=== PATIENT | female | born 1995 | race Caucasian/White ===

== ENCOUNTER 2021-07-27 10:01 | Outpatient (REF) | payer OTHER, SELFPAY ==
[2021-07-27 11:22] LABS: MANUAL DIFF FLAG NO
[2021-07-27 11:34] LABS: Basophils Absolute Auto 0.1 X10*3/uL (0.0-0.2); Basophils Percent Auto 0.7 % (0-2); Eosinophils Absolute Auto 0.2 X10*3/uL (0.0-0.4); Eosinophils Percent Auto 1.7 % (0-4); Hematocrit 35.4 % (37.0-47.0); Hemoglobin 10.4 g/dl (12.0-16.0); Imm Gran Abs Auto 0.04 X10*3/uL (0.00-0.03); Imm Gran Pct Auto 0.3 % (0.0-0.4); Lymphocytes Absolute Auto 2.7 X10*3/uL (1.2-4.9); Lymphocytes Percent Auto 23.3 % (20-40); Mean Corpuscular HGB Conc 29.4 g/dl (31.0-35.0); Mean Corpuscular Hemoglobin 21.4 pg (27.0-33.0); Mean Platelet Volume 10.2 fL (9.4-12.3); Monocytes Absolute Auto 0.6 X10*3/uL (0.1-1.2); Monocytes Percent Auto 5.6 % (2-11); Neutrophils Absolute Auto 7.8 x10*3/uL (2.0-8.3); Neutrophils Percent Auto 68.4 % (45-73); Platelet Count 447 X10*3/uL (160-400); Red Blood Count 4.85 X10*6/uL (4.20-5.50); Red Cell Distribution Width 17.8 % (11.0-16.0); White Blood Count 11.4 X10*3/uL (4.8-10.8)
[2021-07-27 11:49] LABS: Anion Gap 13 (12-20); Blood Urea Nitrogen 10 mg/dL (9-16); Calcium 9.7 mg/dL (8.4-10.2); Carbon Dioxide 23 mmol/L (22-29); Chloride 105 mmol/L (96-108); Cholesterol 206 mg/dL; Estimated Glomerular Filt Rate > 60; Glucose Fasting 120 mg/dL (60-99); HDL Cholesterol 47 mg/dL; LDL Cholesterol Calculated 143 mg/dl; Potassium 3.9 mmol/L (3.3-5.1); Sodium 137 mmol/L (135-145); Triglycerides 81 mg/dL
[2021-07-27 12:04] LABS: TSH reflex Free T4 2.54 uIU/mL (0.32-4.0); Vitamin D 25-OH Total 18.5 ng/mL (>30)
== END 2021-07-27 10:02 | disposition home or self-care (01) ==
LOC: HO.HMGCLDS 10:01
PROVIDERS: Visit Provider Internal Medicine
DX: Z00.01 Encounter for general adult medical examination with abnormal findings (principal); F84.5 Asperger's syndrome; R53.83 Other fatigue
CPT/HCPCS: 36415; 80048; 80061; 82306; 84443; 85025

== ENCOUNTER 2021-10-05 12:28 | Outpatient (REF) | payer OTHER, SELFPAY | END 2021-10-05 12:29 | disposition home or self-care (01) | LOC: HO.HOSX 12:28 | PROVIDERS: Visit Provider Physician Assistant | DX: Z13.89 Encounter for screening for other disorder (principal) ==

== ENCOUNTER 2023-09-24 13:03 | Outpatient (AMB) | payer OTHER, SELFPAY ==
--- NOTE | 2023-09-24 13:20 | AM.OFFWIN_ITS ---
Intake Vital Signs 09/24/23 13:25 Height 5 ft 7 in Weight 238 lb 8 oz BMI 37.4 BP 118/74 Blood Pressure Location Lt brachial Position Sitting Respiration 16 Pulse 105 H Pulse Source Pulse Oximeter Temp 98.7 F Temp Source Oral Intake Visit Reasons: Right ankle pain and swelling Intake Note: Right ankle pain and swelling. Patient Tobacco Use Status: Never used Tobacco Accompanied by: Mother Is last menstrual period known: Yes (last week) Allergies penicillin G Allergy (Unknown, Verified 09/24/23 13:24) Rash Penicillins [PENICILLINS] Allergy (Unknown, Verified 09/24/23 13:24) RASH Medication List - Last Reconciled 09/24/23 by Yumiko Alex PA-C No Known Home Meds Do you need a note to return to daycare/school/sports/work: No HPI Right ankle pain and swelling HPI Details Patient is a 28-year-old female who presents today with complaints of right ankle pain that started a few days ago. She jumped into the pool in the shallow end and rolled her ankle. She states that she landed hard on her ankle and is worried that she could have broke it. She says that there was immediate pain and swelling. She has been using an Jovi bandage at home, OTC analgesics and still experiencing pain. She states that she is able to weightbear but it is painful. Her mother notes that she has been limping. She has never injured this ankle before. [facility] Medical History (Updated 09/24/23 @ 14:07 by Yumiko Alex PA-C) Elevated LDL cholesterol level Vitamin D deficiency Microcytic hypochromic anemia Elevated fasting glucose Chronic pain of left knee Asperger syndrome Generalized anxiety disorder Surgical History No pertinent past surgical history Family History Mother Generalized anxiety disorder Osteoarthritis Father PTSD (post-traumatic stress disorder) Generalized anxiety disorder Social History Housing: House Patient Tobacco Use Status: Never used Tobacco e-Cigarette/Vaping Use: Never Used service: No Current occupational status: unemployed Cognitive needs: No Hearing needs: No Vision needs: Yes Female Reproductive History Menstrual Age of Menarche: 11 Physical Exam Vital Signs: Last Vital Signs Temp 98.7 F 09/24/23 13:25 Pulse 105 H 09/24/23 13:25 Resp 16 09/24/23 13:25 BP 118/74 09/24/23 13:25 BMI result Body Mass Index 37.4 Const Orientation/consciousness: patient oriented x3 Resp Auscultation: clear to auscultation bilaterally Cardio Rate: regular rate Rhythm: regular rhythm Heart sounds: S1 normal heart sound present and S2 normal heart sound present Skin General skin exam: no rashes or lesions noted Neuro General: patient oriented x3 Extrem Other: There is mild soft tissue swelling noted over the right lateral malleolus. Tender to palpation over the malleolus. Full range of motion however there is discomfort with inversion, eversion, plantar flexion and dorsiflexion. DP pulses 2+ bilaterally. Sensation intact. Good capillary refill. No bruising noted. The foot is nontender. Leg is nontender. Assessment & Plan Assessment & Plan (1) Right ankle pain: Code(s): M25.571 - Pain in right ankle and joints of right foot Qualifiers: Chronicity: acute Qualified Code(s): M25.571 - Pain in right ankle and joints of right foot Plan: X-ray ordered. Ankle brace and crutches ordered. Advised to rest the injured area for the week. I have encouraged her to elevate, apply ice, rest and continue with OTC analgesics as needed. Follow up if no improvement or if anything worsens or changes. Patient understands and agrees with the plan. Orders: Orders XR ankle RT min 3V Today M25.571 - Pain in right ankle and joints of right foot Medications: New leg brace (Ankle Brace) use right ankle brace daily as directed for ankle sprain 1 ea 0RF M25.571 - Pain in right ankle and joints of right foot crutches (pair of crutches) Use crutches daily As directed for right ankle sprain 1 ea 0RF M25.571 - Pain in right ankle and joints of right foot Coding Level of Care Code Est Pt Level 3 (61288) Diagnoses Acute right ankle pain M25.571 Chronicity: acute
[2023-09-24 13:25] VITALS: BP 118/74; PULSE 105; RESP 16; TEMP 37.1; BMI 37.4
== END 2023-09-24 14:02 | disposition home or self-care (01) ==
PROVIDERS: PCP Internal Medicine; Visit Provider Physician Assistant
DX: M25.571 Pain in right ankle and joints of right foot (principal)
CPT/HCPCS: 99213

== ENCOUNTER 2023-09-24 14:26 | Outpatient (REF) | payer OTHER, SELFPAY ==
--- NOTE | ~2023-09-24 | XR_ITS ---
EXAMINATION: XR ANKLE, RIGHT CLINICAL INFORMATION: Right ankle pain jumping into the pool. COMPARISON: None available. TECHNIQUE: AP, lateral, and mortise views of the right ankle. FINDINGS: Diffuse soft tissue swelling. Bone mineralization is normal. Ankle mortise is preserved. Subtle subcortical lucency with linear overlying cortical sclerosis with possible focal cortical concavity and step-off along the lateral aspect of the talar dome, best appreciated on the oblique view, possibly related to sequela of reported trauma. XR/XR ankle RT min 3V IMPRESSION: 1. Subtle cortical/subcortical defect along the lateral aspect of the talar dome as detailed above may represent a normal variant versus sequela of recent trauma. 2. Correlation with clinical exam and possible additional imaging with CT scan recommended. This study was presented to me October 20, 2023 for interpretation. [facility] staff will provide results to referring provider at this time.
== END 2023-09-24 14:27 | disposition home or self-care (01) ==
LOC: HO.XRAY 14:26
PROVIDERS: PCP Internal Medicine; Visit Provider Physician Assistant
DX: M25.571 Pain in right ankle and joints of right foot (principal)
CPT/HCPCS: 73610

== ENCOUNTER 2023-10-25 18:39 | Emergency (ER) | payer OTHER, SELFPAY ==
[2023-10-25 18:42] VITALS: BP 129/80; PULSE 105; RESP 18; TEMP 36.6; O2SAT 98; BMI 36.3
--- NOTE | 2023-10-25 18:46 | ECG_ITS ---
Test Reason : dizziness Blood Pressure : / mmHG Vent. Rate : 098 BPM Atrial Rate : 098 BPM P-R Int : 160 ms QRS Dur : 078 ms QT Int : 348 ms P-R-T Axes : 036 014 -12 degrees QTc Int : 444 ms Normal sinus rhythm Cannot rule out Anterior infarct , age undetermined Nonspecific ST and T wave abnormality Abnormal ECG No previous ECGs available Referred By: Nikki Gandara Electronically Signed By:RENÉE FOSTER
--- NOTE | 2023-10-25 18:47 | ED.GENADULT ---
HPI - General Adult General Chief complaint: General Medical Stated complaint: light headed/weak/has autism Time Seen by Provider: 10/25/23 20:24 Source: patient, family and RN notes reviewed Mode of arrival: ambulatory Limitations: no limitations History of Present Illness ED Provider: Luz Marina HPI narrative: 28-year-old female with history of autism spectrum disorder presents for evaluation of lightheadedness. Patient reports her symptoms started about 2 days ago. Her symptoms are worse with changing positions. She does complain of mild pressure in her ears but denies any severe pain. She has no headaches, chest pain, shortness of breath, palpitations. Denies any visual changes, nausea vomiting. Denies any trauma to the head or neck She denies any history of vertigo or swelling episodes of dizziness. She states that she is drinking water the day and does not feel dehydrated Denies any urinary frequency, burning with urination or foul-smelling urine Related Data Previous Rx's ?Medication ?Instructions ?Recorded crutches (pair of crutches) #1 ea 09/24/23 leg brace (Ankle Brace) #1 ea 09/24/23 meclizine 25 mg tablet 25 mg PO QID #20 tabs 10/25/23 Allergies Allergy/AdvReac Type Severity Reaction Status Date / Time penicillin G Allergy Unknown Rash Verified 10/25/23 18:44 Penicillins [PENICILLINS] Allergy Unknown RASH Verified 10/25/23 18:44 Review of Systems Constitutional: Constitutional: Denies body ache(s), Denies chills, Denies fever(s) and Denies headache(s) Eyes: Eyes: Denies blurry vision ENT: Reports vertigo, Reports dizziness and Denies headache(s) Cardiovascular: Cardiovascular: Denies chest pain and Denies dyspnea Respiratory: Respiratory: Denies cough and Denies dyspnea Gastrointestinal: Gastrointestinal: Denies abdominal pain, Denies nausea and Denies vomiting Genitourinary: Genitourinary: Denies dysuria and Denies flank pain Musculoskeletal: Musculoskeletal: Denies back pain Integumentary/Breasts: Skin/Breast: Denies rash Neurologic: Reports vertigo, Reports dizziness and Denies headache(s) [facility] Past Medical History Medical History (Updated 10/25/23 @ 21:34 by Kashif Raza) Elevated LDL cholesterol level Vitamin D deficiency Microcytic hypochromic anemia Elevated fasting glucose Chronic pain of left knee Asperger syndrome Generalized anxiety disorder Surgical History No pertinent past surgical history Family History Family History Mother Generalized anxiety disorder Osteoarthritis Father PTSD (post-traumatic stress disorder) Generalized anxiety disorder Social History Social History Housing: House Alcohol intake: never Patient Tobacco Use Status: Never used Tobacco Smoked in Last 30 Days: No e-Cigarette/Vaping Use: Never Used Use of substances other than those prescribed or required for medical reasons: Yes Substance Use Type: Marijuana Advance Directives: No Advance Directives Information Provided: No Patient : No service: No Current occupational status: unemployed Cognitive needs: No Hearing needs: No Vision needs: Yes Physical Exam ED Vital Signs: Vital Signs - 24 hr 10/25/23 18:42 10/25/23 19:32 10/25/23 19:33 Temperature 97.9 F Pulse Rate 105 H 100 103 H Respiratory Rate 18 Blood Pressure 129/80 117/74 120/77 Pulse Oximetry 98 Oxygen Delivery Method Room Air 10/25/23 19:33 Temperature Pulse Rate 109 H Respiratory Rate Blood Pressure 121/77 Pulse Oximetry Oxygen Delivery Method BMI result Body Mass Index 36.3 Const General: healthy appearing, comfortable, no acute distress, alert and awake Nutritional Appearance: well nourished Orientation/consciousness: patient oriented x3 HENMT Other: Right middle ear effusion without erythema perforation. Left tympanic membrane pearly white without effusion or erythema. External ear canals clear bilaterally, no mastoid tenderness bilaterally Head: Yes normocephalic and Yes atraumatic Eyes Eyelids: Yes eyelids normal Conjunctivae: conjunctivae normal Sclerae: sclerae normal Corneas: corneas normal Pupils: Equal, round and reactive pupils present EOM: EOMs intact bilaterally Neck Neck: Yes full ROM Resp Effort & Inspection: normal respiratory effort, able to speak in complete sentences, no audible wheezes and not labored Auscultation: clear to auscultation bilaterally Cardio Rate: regular rate Rhythm: regular rhythm GI Inspection: No distended Palpation (GI): Soft to palpation, not firm, nontender, no guarding and not rigid Auscultation: normoactive bowel sounds Skin General skin exam: no rashes or lesions noted and elasticity normal Neuro Other: Cottonwood-Hallpike maneuver negative General: patient oriented x3 Cranial nerves: Yes CN's II-XII intact bilaterally, Yes Equal, round and reactive pupils present and Yes Bilaterally intact EOM present Cognition (Neuro): normal cognition Extrem Other: Moving all extremities well without any obvious deformities Course Course Course Narrative: This is a Rapid Medical Exam performed in triage by Nikki Gandara PA-C. Full HPI, ROS and PE to be performed by primary ED provider. 28 year-old F w/ PMHx Autism, Anxiety presenting to the ED c/o gen weakness & lightheadedness x2 days. Denies SHAIKH, CP, SOB, sick contacts PE: ambulating w/ steady gait, nontoxic appearing Plan: EKG, labs, UA, viral testing, orthostatics Medications Administered Discontinued Medications Generic Name Dose Route Start Last Admin Trade Name Freq PRN Reason Stop Dose Admin Meclizine HCl 50 mg 10/25/23 20:38 10/25/23 20:53 Meclizine Hcl 25 Mg Tablet PO 10/25/23 20:39 50 mg ONCE ONE Administration Medical Decision Making Medical Decision Making [facility] Narrative: 20-year-old female presents for evaluation of dizziness described as lightheadedness. This started 2 days ago. She is slightly tachycardic but otherwise vital signs are within normal limits. She is not orthostatic. Her labs show a mild leukocytosis, chronic microcytic anemia that is consistent with her baseline going back to June of 2 years ago. She has no significant electrolyte abnormalities warranting intervention. Her dizziness is likely due to her middle ear effusion on the right. Will treat with meclizine and she will use [id number] decongestants at home. Differential Diagnosis Differential Diagnoses: The differential diagnosis associated with the presentation includes Vertigo Dizziness Lightheadedness Orthostasis GANGA Lab Data [facility] Lab Attestation statement: I reviewed the patient's lab results. Please see medical decision making section of 10/25/23 18:54 10/25/23 18:54 Labs: Lab Results 10/25/23 10/25/23 Range/Units 18:47 18:54 WBC 11.0 H (4.8-10.8) X10*3/uL RBC 4.90 (4.20-5.50) X10*6/uL Hgb 10.6 L (12.0-16.0) g/dl Hct 34.8 L (37.0-47.0) % MCV 71.0 L (80.0-98.0) fL MCH 21.6 L (27.0-33.0) pg MCHC 30.5 L (31.0-35.0) g/dl RDW 18.1 H (11.0-16.0) % Plt Count 451 H (160-400) X10*3/uL MPV 9.6 (9.4-12.3) fL Immature Gran % (Auto) 0.3 (0.0-0.4) % Neut % (Auto) 62.3 (45-73) % Lymph % (Auto) 29.3 (20-40) % [place] % (Auto) 6.2 (2-11) % Eos % (Auto) 1.4 (0-4) % Baso % (Auto) 0.5 (0-2) % Lymph # (Auto) 3.2 (1.2-4.9) X10*3/uL [place] # (Auto) 0.7 (0.1-1.2) X10*3/uL Eos # (Auto) 0.2 (0.0-0.4) X10*3/uL Baso # (Auto) 0.1 (0.0-0.2) X10*3/uL Abs Immat Gran (auto) 0.03 (0.00-0.03) X10*3/uL Absolute Neuts (auto) 6.9 (2.0-8.3) x10*3/uL Absolute Nucleated RBC 0.000 (0.0-0.012) X10*3/uL Nucleated RBC % (auto) 0.0 (0.0-0.2) /100WBC Sodium 141 (135-145) mmol/L Potassium 3.5 (3.3-5.1) mmol/L Chloride 108 (96-108) mmol/L Carbon Dioxide 21 L (22-29) mmol/L Anion Gap 16 (12-20) BUN 10 (9-16) mg/dL Creatinine 0.77 (0.5-1.4) mg/dL Estim Creat Clear Calc 135.6 Estimated GFR > 60 POC Glucose 84 (60-115) mg/dL Random Glucose 90 (60-115) mg/dL Calcium 9.7 (8.4-10.2) mg/dL Magnesium 2.1 (1.6-2.6) mg/dL Total Bilirubin 0.2 (0.0-1.0) mg/dL Direct Bilirubin < 0.2 (0.0-0.5) mg/dL AST 15 (5-31) U/L ALT 13 (0-31) U/L Alkaline Phosphatase 78 (39-117) U/L Troponin I High Sens < 2.7 (<3.5-17.0) ng/L Total Protein 8.1 H (6.5-8.0) g/dL Albumin 4.4 (3.5-5.0) g/dL Urine Color Yellow Urine Appearance Cloudy Urine pH 5.5 (5.0-9.0) Ur Specific [place] >= 1.030 H (1.005-1.025) Urine Protein Trace (Neg-Trace) mg/dL Urine Glucose (UA) Negative (Negative) mg/dL Urine Ketones Trace (Negative) mg/dL Urine Blood Negative (Negative) Urine Nitrite Negative (Negative) Ur Leukocyte Esterase Trace H (Negative) Urine RBC 3-5 H (0-2) /HPF Urine WBC 0-5 (0-5) /HPF Ur Squamous Epith Cells 11-20 (0-2) /HPF Calcium Oxalate Crystal Present Urine Bacteria 2+ (None Seen) Hyaline Casts 0-2 (0-2) /LPF Urine Test NEGATIVE (NEGATIVE) Influenza Type A (PCR) NEGATIVE (Negative) Influenza Type B (PCR) NEGATIVE (Negative) RSV RNA Qual (PCR) NEGATIVE (Negative) SARS-CoV-2 RNA (RT-PCR) NEGATIVE (Negative) Discharge Plan Discharge Clinical Impression: Light-headedness Patient Disposition: Home, Self-Care Instructions: Lightheadedness (ED) Additional Instructions: Continue hydrating well. You may use meclizine as needed for any dizziness. Her symptoms may be attributed to fluid in your right ear. I recommend using [id number] decongestant Follow-up with your primary doctor return for new or worsening symptoms Prescriptions: New meclizine 25 mg tablet 25 mg PO QID Qty: 20 0RF No Action (DME) Ankle Brace Misc See Rx Instructions .Route Qty: 1 0RF Rx Instructions: use right ankle brace daily as directed for ankle sprain (DME) pair of crutches Kit See Rx Instructions .Route Qty: 1 0RF Rx Instructions: Use crutches daily As directed for right ankle sprain Print Language: Luxembourger
[2023-10-25 18:51] LABS: Glucose, Whole Blood 84 mg/dL (60-115)
[2023-10-25 19:06] LABS: MANUAL DIFF FLAG NO
[2023-10-25 19:08] LABS: Basophils Absolute Auto 0.1 X10*3/uL (0.0-0.2); Basophils Percent Auto 0.5 % (0-2); Eosinophils Absolute Auto 0.2 X10*3/uL (0.0-0.4); Eosinophils Percent Auto 1.4 % (0-4); Hematocrit 34.8 % (37.0-47.0); Hemoglobin 10.6 g/dl (12.0-16.0); Imm Gran Abs Auto 0.03 X10*3/uL (0.00-0.03); Imm Gran Pct Auto 0.3 % (0.0-0.4); Lymphocytes Absolute Auto 3.2 X10*3/uL (1.2-4.9); Lymphocytes Percent Auto 29.3 % (20-40); Mean Corpuscular HGB Conc 30.5 g/dl (31.0-35.0); Mean Corpuscular Hemoglobin 21.6 pg (27.0-33.0); Mean Platelet Volume 9.6 fL (9.4-12.3); Monocytes Absolute Auto 0.7 X10*3/uL (0.1-1.2); Monocytes Percent Auto 6.2 % (2-11); Neutrophils Absolute Auto 6.9 x10*3/uL (2.0-8.3); Neutrophils Percent Auto 62.3 % (45-73); Platelet Count 451 X10*3/uL (160-400); Red Cell Distribution Width 18.1 % (11.0-16.0)
[2023-10-25 19:09] LABS: Appearance Urine Cloudy; Color Urine Yellow; Glucose Urine UA Negative (Negative); Leukocyte Esterase Urine Trace (Negative); Nitrite Urine Negative (Negative); PH 5.5 (5.0-9.0); Specific Gravity - Urine >= 1.030 (1.005-1.025); UMIC TRIGGER UACC YES; Urine Blood Negative (Negative); Urine Ketones Trace mg/dL (Negative); Urine Protein Trace mg/dL (Neg-Trace)
[2023-10-25 19:10] LABS: Urine Pregnancy NEGATIVE (NEGATIVE)
[2023-10-25 19:11] LABS: UPreg QC Valid YES
[2023-10-25 19:21] LABS: Alanine Aminotransferase 13 U/L (0-31); Albumin Level 4.4 g/dL (3.5-5.0); Alkaline Phosphatase 78 U/L (39-117); Anion Gap 16 (12-20); Aspartate Amino Transferase 15 U/L (5-31); Bacteria Urine 2+ (None Seen); Bilirubin Direct < 0.2 mg/dL (0.0-0.5); Bilirubin Total 0.2 mg/dL (0.0-1.0); Blood Urea Nitrogen 10 mg/dL (9-16); Calcium 9.7 mg/dL (8.4-10.2); Calcium Oxalate Crystals Urine Present; Carbon Dioxide 21 mmol/L (22-29); Chloride 108 mmol/L (96-108); Creatinine Clr Calc Pharmacy 135.6; Estimated Glomerular Filt Rate > 60; Glucose Random 90 mg/dL (60-115); Hyaline Casts Urine 0-2 /LPF (0-2); Magnesium 2.1 mg/dL (1.6-2.6); Potassium 3.5 mmol/L (3.3-5.1); Sodium 141 mmol/L (135-145); Total Protein 8.1 g/dL (6.5-8.0); WBC Urine 0-5 /HPF (0-5)
[2023-10-25 19:28] LABS: Troponin-I High Sensitivity < 2.7 ng/L (<3.5-17.0)
[2023-10-25 19:32] VITALS: BP 117/74; PULSE 100
[2023-10-25 19:33] VITALS: BP 120/77; BP 121/77; PULSE 103; PULSE 109
[2023-10-25 19:43] LABS: Influenza A PCR NEGATIVE (Negative); Influenza B PCR NEGATIVE (Negative); Resp Syncy Virus RNA Qual PCR NEGATIVE (Negative); SARS COV2 PCR INHOUSE NEGATIVE (Negative)
[2023-10-25] MEDS: Meclizine HCl 25 MG TABLET 50 MG PO (20:53)
[2023-10-25 21:33] VITALS: BP 121/74; PULSE 84; RESP 18; TEMP 36.7; O2SAT 98
[2023-10-25 21:41] VITALS: BP 121/74; PULSE 84; RESP 18; TEMP 36.7; O2SAT 98
== END 2023-10-25 21:42 | disposition home or self-care (01) ==
PROVIDERS: Physician Assistant; Emergency Provider Emergency Medicine; PCP Internal Medicine
DX: R42 Dizziness and giddiness (principal); H92.01 Otalgia, right ear; R00.0 Tachycardia, unspecified; D50.9 Iron deficiency anemia, unspecified; D72.829 Elevated white blood cell count, unspecified; Z03.818 Encounter for observation for suspected exposure to other biological agents ruled out; E78.5 Hyperlipidemia, unspecified; F84.0 Autistic disorder; F84.5 Asperger's syndrome; F12.90 Cannabis use, unspecified, uncomplicated
CPT/HCPCS: 0241U; 80048; 80076; 81001; 81025; 82947; 83735; 84484; 85025; 93005; 99284

== ENCOUNTER → 2023-10-25 18:46 | Outpatient (BNV) | payer OTHER, SELFPAY | PROVIDERS: Emergency Provider Emergency Medicine; PCP Internal Medicine; Visit Provider Internal Medicine | DX: R94.31 Abnormal electrocardiogram [ECG] [EKG] (principal) | CPT/HCPCS: 93010 ==